=== PATIENT | female | born 1985 | race Hispanic/Latino ===

== ENCOUNTER 2017-07-22 04:26 | Emergency (ER) | payer SELFPAY ==
[2017-07-22 04:53] LABS: Bilirubin Negative (Negative); Blood, Urine Moderate (Negative); Glucose, Urine (Dipstick) Negative (Negative); Ketone, Urine Negative (Negative); Nitrite Negative (Negative); Protein, Urine (Dipstick) Negative (Neg-Trace); Urobilinogen 0.2 mg/dL (0.2-1.0)
[2017-07-22] MEDS ORDERED: Ondansetron ODT 4 MG TAB ONE (04:53)
[2017-07-22] MEDS ORDERED: Ketorolac Tromethamine 30 MG/ML VIAL ONE (04:55)
[2017-07-22 05:02] LABS: #Basophils 0.1 thou/uL (0.0-0.2); #Eosinphils 0.2 thou/uL (0.0-0.7); #Lymphocytes 2.4 thou/uL (1.20-3.40); #Monocytes 0.8 thou/uL (0.11-0.59); #Neutrophils 5.9 thou/uL (1.40-6.50); %Basophils 0.8 % (0.0-1.0); %Eosinophils 2.5 % (0.0-10.0); %Lymphocytes 25.7 % (21.0-51.0); Hematocrit 42.7 % (36.0-47.0); Mean Platelet Volume 8.2 fL (7.4-10.4); Red Blood Cell (RBC) Count 4.88 mill/uL (4.20-5.40); White Blood Cell (WBC) Count 9.4 thou/uL (4.8-10.8)
[2017-07-22 05:26] LABS: Bacteria/HPF 1+ HPF (None Seen); Hyaline Casts/LPF NONE SEEN LPF (0-3 Hyaline); WBC/HPF 0-3 HPF (0-3)
[2017-07-22 05:28] LABS: ALT (SGPT) 23 U/L (8-55); AST (SGOT) 17 U/L (5-34); Alkaline Phosphatase 73 U/L (40-150); Anion Gap 13 mmol/L (10-20); BUN (Urea Nitrogen) 18 mg/dL (7.0-18.7); Bilirubin, Total 0.7 mg/dL (0.2-1.2); Calc. Creatinine Clearance 0 mL/min (70-130); Calcium 9.3 mg/dL (7.8-10.44); Carbon Dioxide 22 mmol/L (22-29); Chloride 104 mmol/L (98-107); Estimated GFR-MDRD Greater than 90; Globulin 3.7 g/dL (2.4-3.5); Lipase 22 U/L (8-78)
--- NOTE | 2017-07-22 07:37 | RAD ---
TWO VIEWS OF THE CHEST: COMPARISON: None. HISTORY: Upper and mid back pain that began yesterday. Dyspnea. FINDINGS: Two views of the chest show normal sized cardiomediastinal silhouette. There is no evidence of conso lidation, mass, or pleural effusion. The bones are unremarkable. IMPRESSION: No evidence of acute cardiopulmonary disease. POS: [facility]
== END 2017-07-22 06:07 | disposition home or self-care (01) ==
LOC: ERS 04:26
DX: M54.6 Pain in thoracic spine (principal)
CPT/HCPCS: 36415; 71020; 80053; 81003; 81015; 81025; 83690; 85025; 85379; 96372; J1885; Q0162

== ENCOUNTER 2019-05-28 13:39 | Emergency (ER) | payer SELFPAY ==
[2019-05-28] MEDS ORDERED: Ketorolac Tromethamine 30 MG/ML VIAL ONE (14:39)
--- NOTE | 2019-05-28 14:54 | RAD ---
Exam:3 views left shoulder HISTORY: Pain. COMPARISON: None FINDINGS: Limited evaluation of the glenohumeral joint space due to position. No fracture. No disloca tion. Visualized left ribs are unremarkable. IMPRESSION: Limited evaluation of the glenohumeral joint space. No fracture or dislocation
--- NOTE | 2019-05-28 16:07 | RAD ---
LEFT SHOULDER TWO VIEWS: 05/28/19 HISTORY: Left shoulder pain, injury. True AP and axillary lateral views are performed. No fracture, dislocation, or other acute process. IMPRESSION: Unremarkable left shoulder. POS: [facility]
== END 2019-05-28 16:06 | disposition home or self-care (01) ==
LOC: ERS 13:39
DX: R07.89 Other chest pain (principal); M25.512 Pain in left shoulder
CPT/HCPCS: 93005; 96372; J1885

== ENCOUNTER 2019-09-06 19:55 | Emergency (ER) | payer SELFPAY ==
[2019-09-06 20:20] LABS: Bilirubin Negative (Negative); Blood, Urine Negative (Negative); Clarity Clear (Clear); Glucose, Urine (Dipstick) Normal (Negative); Leukocyte Negative Leu/uL (Negative); Nitrite Negative (Negative); Protein, Urine (Dipstick) Negative (Neg-Trace); Urobilinogen Normal mg/dL (Less than 2)
[2019-09-06 20:23] LABS: Pregnancy Test - Urine (BHCG) Negative (Negative); Pregu Control Background? CLEAR/WHITE (CLR/WHITE); Pregu Control Bar Appear? YES (CONTROL BAR); Specific Gravity 1.022 (1.002-1.036)
[2019-09-06] MEDS ORDERED: Ketorolac Tromethamine 30 MG/ML VIAL ONE (20:40)
[2019-09-06 20:54] LABS: #Basophils 0.1 thou/uL (0.0-0.2); #Eosinphils 0.3 thou/uL (0.0-0.7); #Lymphocytes 3.5 thou/uL (1.20-3.40); #Monocytes 0.8 thou/uL (0.11-0.59); #Neutrophils 4.9 thou/uL (1.40-6.50); %Basophils 1.1 % (0.0-1.0); %Eosinophils 2.7 % (0.0-10.0); %Lymphocytes 36.6 % (21.0-51.0); %Monocytes 8.3 % (0.0-10.0); %Neutrophils 51.3 % (42.0-75.0); Hemoglobin 12.3 g/dL (12.0-16.0); Mean Corpuscular HGB CONC 33.8 g/dL (32.0-36.0); Mean Corpuscular Hemoglobin 28.8 pg (27.0-31.0); Mean Corpuscular Volume 85.1 fL (78.0-98.0); Mean Platelet Volume 7.9 fL (7.4-10.4); Platelet Count 271 thou/uL (130-400); RBC Distribution Width 12.6 % (11.5-14.5); Red Blood Cell (RBC) Count 4.28 mill/uL (4.20-5.40); White Blood Cell (WBC) Count 9.5 thou/uL (4.8-10.8)
[2019-09-06 21:17] LABS: ALT (SGPT) 31 U/L (8-55); AST (SGOT) 22 U/L (5-34); Albumin 4.3 g/dL (3.5-5.0); Alkaline Phosphatase 77 U/L (40-110); Anion Gap 12 mmol/L (10-20); BUN (Urea Nitrogen) 14 mg/dL (7.0-18.7); Bilirubin, Total 0.2 mg/dL (0.2-1.2); Calc. Creatinine Clearance 0 mL/min (70-130); Calcium 9.1 mg/dL (7.8-10.44); Carbon Dioxide 24 mmol/L (22-29); Chloride 108 mmol/L (98-107); Estimated GFR-MDRD 81; Globulin 3.1 g/dL (2.4-3.5); Glucose 93 mg/dL (70-105); Potassium 3.7 mmol/L (3.5-5.1); Protein, Total 7.4 g/dL (6.0-8.3); Sodium 140 mmol/L (136-145)
--- NOTE | 2019-09-06 21:17 | CT ---
CT abdomen and pelvis noncontrast HISTORY: Right flank pain. FINDINGS: Each renal collecting system, ureter, and urinary bladder are decompressed without stone ev ident. Lack of contrast limits evaluation for other abnormalities. Liver is diffusely hypodense. Gallbladder surgically absent. Appendix not visualized. At the right adnexa, an oval cystic lesion is 3.7 cm greatest diameter. Small nearby metallic object may be related to a clip from the cholecystectomy. Ti ny focus of dystrophic calcification at the posterior margin of the lower uterus may be related to mild fibroid disease. IMPRESSION: No CT evidence of urinary tract obstruction or calcification. Right ovarian cyst 3.7 cm.
--- NOTE | 2019-09-06 22:55 | ULT ---
Pelvic sonogram transabdominal and transvaginal imaging with duplex evaluation HISTORY: Pelvic pain. FINDINGS: Urinary bladder is incompletely distended. Uterus has a heterogeneous echotexture and measu res up to 9.7 cm. Endometrium is 1.2 cm. Small dystrophic calcification along the anterior myometrium. No free fluid in the pelvis. Right ovary measures up to 4.7 cm with a dominant 2.4 cm follicle. No pathologic mass. Left ovary is 2.5 cm. Good color and spectral Doppler flow within each ovary. IMPRESSION: No pathologic right ovarian cyst is evident on sonogram. Dominant follicle is 2.4 cm. Thickened endometrium
== END 2019-09-06 23:08 | disposition home or self-care (01) ==
LOC: ERS 19:55
DX: N83.201 Unspecified ovarian cyst, right side (principal)
CPT/HCPCS: 36415; 74176; 76856; 80053; 81003; 81025; 85025; J1885

== ENCOUNTER 2020-04-28 11:42 | Emergency (ER) | payer SELFPAY ==
[2020-04-28 12:34] LABS: ALT (SGPT) 27 U/L (8-55); AST (SGOT) 19 U/L (5-34); Albumin 4.1 g/dL (3.5-5.0); Alkaline Phosphatase 76 U/L (40-110); Anion Gap 12 mmol/L (10-20); BHCG - Serum Negative (NEGATIVE); BUN (Urea Nitrogen) 15 mg/dL (7.0-18.7); Bilirubin, Total 0.3 mg/dL (0.2-1.2); Calc. Creatinine Clearance 0 mL/min (70-130); Calcium 8.8 mg/dL (7.8-10.44); Carbon Dioxide 21 mmol/L (22-29); Chloride 108 mmol/L (98-107); Estimated GFR-MDRD 90; Globulin 3.2 g/dL (2.4-3.5); Glucose 108 mg/dL (70-105); Lipase 32 U/L (8-78); Potassium 3.7 mmol/L (3.5-5.1); Pregs Control Background? CLEAR/WHITE (CLR/WHITE); Pregs Control Bar Appear? YES (CONTROL BAR); Protein, Total 7.3 g/dL (6.0-8.3); Sodium 137 mmol/L (136-145)
[2020-04-28] MEDS ORDERED: Metoclopramide HCl 10 MG/2 ML VIAL ONE (12:38)
[2020-04-28] MEDS ORDERED: Proparacaine 0.5% Opth 15 ML BOT ONE (12:38)
[2020-04-28] MEDS ORDERED: diphenhydrAMINE 50 MG/ML VIAL ONE (12:38)
--- NOTE | 2020-04-28 12:51 | CT ---
CT BRAIN: DATE: 04/28/2020. PROVIDED CLINICAL HISTORY: Headache. FINDINGS: The ventricular system appears normal in size and morphology. There is no evidence for intracranial hemorrhage or mass effect. There is a focal area of asymmetric CSF density at the lateral aspect of the right cerebellar hemisphere with a somewhat asymmetrically small appearance to the right cerebell ar hemisphere as compared to the left. This may be on the basis of developmental changes, encephalom alacia, or possibly an arachnoid cyst. The extracranial soft tissues and osseous structures demonstr ate an unremarkable CT appearance. IMPRESSION: No evidence for intracranial hemorrhage or mass effect. POS: [facility]
[2020-04-28 13:01] LABS: #Basophils 0.1 thou/uL (0.0-0.2); #Eosinphils 0.2 thou/uL (0.0-0.7); #Lymphocytes 2.6 thou/uL (1.20-3.40); #Monocytes 0.5 thou/uL (0.11-0.59); #Neutrophils 3.1 thou/uL (1.40-6.50); %Eosinophils 2.4 % (0.0-10.0); %Lymphocytes 40.9 % (21.0-51.0); %Monocytes 7.1 % (0.0-10.0); %Neutrophils 48.7 % (42.0-75.0); Hemoglobin 12.2 g/dL (12.0-16.0); Mean Corpuscular HGB CONC 32.8 g/dL (32.0-36.0); Mean Corpuscular Hemoglobin 27.9 pg (27.0-31.0); Mean Corpuscular Volume 85.3 fL (78.0-98.0); Mean Platelet Volume 9.1 fL (7.4-10.4); Platelet Count 268 thou/uL (130-400); RBC Distribution Width 13.4 % (11.5-14.5); Red Blood Cell (RBC) Count 4.36 mill/uL (4.20-5.40); White Blood Cell (WBC) Count 6.4 thou/uL (4.8-10.8)
--- NOTE | 2020-04-28 13:09 | RAD ---
PORTABLE CHEST: DATE: 04/28/2020. PROVIDED CLINICAL HISTORY: Chest pain. FINDINGS: Comparison 07/22/2017. Cardiac and mediastinal silhouette is within normal limits. No focal consolid ation, pleural fluid, or pneumothorax apparent. IMPRESSION: No evidence for an acute cardiopulmonary process. POS: [facility]
[2020-04-28] MEDS ORDERED: Ketorolac Tromethamine 30 MG/ML VIAL ONE (13:27)
[2020-04-28 13:34] LABS: Bacteria/HPF None Seen HPF (None Seen); Bilirubin Negative (Negative); Blood, Urine 2+ (Negative); Clarity Clear (Clear); Glucose, Urine (Dipstick) Normal (Negative); Ketone, Urine Negative (Negative); Leukocyte Negative Leu/uL (Negative); Nitrite Negative (Negative); Protein, Urine (Dipstick) Negative (Neg-Trace); RBC/HPF 0-3 HPF (0-3); Specific Gravity, Urine 1.017 (1.002-1.036); Squamous Epithelial 0-3 HPF (0-3); Urobilinogen Normal mg/dL (Less than 2); WBC/HPF 0-3 HPF (0-3)
[2020-04-28] MEDS ORDERED: Ondansetron PF 4 MG/2 ML Vial ONE (14:40)
[2020-04-28] MEDS ORDERED: Morphine 4 MG/ML VIAL ONE (14:40)
== END 2020-04-28 15:26 | disposition home or self-care (01) ==
LOC: ERS 11:42
DX: R07.9 Chest pain, unspecified (principal); R51 Headache; M54.5 Low back pain
CPT/HCPCS: 70450; 71045; 80053; 81003; 81015; 83690; 84484; 84703; 85025; 87077; 87086; 93005; J1200; J1885; J2270; J2405; J2765

== ENCOUNTER 2020-08-02 13:27 | Emergency (ER) | payer OTHER, SELFPAY ==
[2020-08-02 14:05] LABS: #Basophils 0.1 thou/uL (0.0-0.2); #Eosinphils 0.3 thou/uL (0.0-0.7); #Lymphocytes 2.6 thou/uL (1.20-3.40); #Monocytes 0.4 thou/uL (0.11-0.59); #Neutrophils 2.6 thou/uL (1.40-6.50); %Basophils 1.2 % (0.0-1.0); %Eosinophils 4.5 % (0.0-10.0); %Lymphocytes 43.5 % (21.0-51.0); %Neutrophils 43.7 % (42.0-75.0); Mean Corpuscular HGB CONC 33.2 g/dL (32.0-36.0); Mean Corpuscular Volume 84.3 fL (78.0-98.0); Mean Platelet Volume 8.7 fL (7.4-10.4); Platelet Count 310 thou/uL (130-400); RBC Distribution Width 13.9 % (11.5-14.5); Red Blood Cell (RBC) Count 4.66 mill/uL (4.20-5.40)
[2020-08-02] MEDS ORDERED: Ketorolac Tromethamine 30 MG/ML VIAL ONE (14:07)
[2020-08-02] MEDS ORDERED: Dexamethasone 10 MG/ML VIAL ONE (14:07)
--- NOTE | 2020-08-02 14:23 | RAD ---
PORTABLE CHEST ONE VIEW: 08/02/20 at 2:05 p.m. HISTORY: COVID exposure with cough and dyspnea. FINDINGS: Comparison made with exam of 04/28/20. The heart size is normal. No lobar consolidation, pneumothoraces, or pleural effusions are seen. IMPRESSION: No radiographic evidence of acute cardiopulmonary process. POS: [facility]
[2020-08-02 14:28] LABS: ALT (SGPT) 23 U/L (8-55); AST (SGOT) 21 U/L (5-34); Albumin 4.3 g/dL (3.5-5.0); Alkaline Phosphatase 71 U/L (40-110); Anion Gap 11 mmol/L (10-20); BUN (Urea Nitrogen) 13 mg/dL (7.0-18.7); Bilirubin, Total 0.2 mg/dL (0.2-1.2); CK (CPK) 67 U/L (29-168); Calc. Creatinine Clearance 0 mL/min (70-130); Calcium 9.2 mg/dL (7.8-10.44); Carbon Dioxide 27 mmol/L (22-29); Chloride 106 mmol/L (98-107); Estimated GFR-MDRD Greater than 90; Globulin 3.6 g/dL (2.4-3.5); Glucose 96 mg/dL (70-105); Potassium 3.5 mmol/L (3.5-5.1); Protein, Total 7.9 g/dL (6.0-8.3); Sodium 140 mmol/L (136-145)
[2020-08-03 12:01] LABS: SARS-CoV-2 MS2 Positive; SARS-CoV-2 N Gene Positive; SARS-CoV-2 S Gene Negative; SARS-CoV-2 by NAA DETECTED (NotDetected); SARS-CoV-2 orf1ab Positive
== END 2020-08-02 15:30 | disposition home or self-care (01) ==
LOC: ERS 13:27
DX: U07.1 COVID-19 (principal)
CPT/HCPCS: 71045; 80053; 82550; 84484; 85025; 87635; 93005; 96374; 96375; J1100; J1885; U0003

== ENCOUNTER 2022-11-07 22:16 | Emergency (ER) | payer SELFPAY ==
[~2022-11-07 22:16] MED LIST: Iopamidol-370 76% 500 ML 1 ML ONE
[2022-11-07 22:43] LABS: Bacteria/HPF None Seen HPF (None Seen); Bilirubin Negative (Negative); Blood, Urine Trace (Negative); Clarity Clear (Clear); Glucose, Urine (Dipstick) Normal (Negative); Ketone, Urine Negative (Negative); Leukocyte Negative Leu/uL (Negative); Nitrite Negative (Negative); Protein, Urine (Dipstick) Negative (Neg-Trace); RBC/HPF 0-3 HPF (0-3); Specific Gravity, Urine 1.021 (1.002-1.036); Squamous Epithelial 0-3 HPF (0-3); Urobilinogen Normal mg/dL (Less than 2); pH, Urine 5.5 (5.0-9.0)
[2022-11-07 22:46] LABS: Pregnancy Test - Urine (BHCG) Negative (Negative); Pregu Control Background? CLEAR/WHITE (CLR/WHITE); Pregu Control Bar Appear? YES (CONTROL BAR); Specific Gravity 1.021 (1.002-1.036)
[2022-11-07 22:55] LABS: #Basophils 0.1 thou/uL (0.0-0.2); #Eosinphils 0.4 thou/uL (0.0-0.7); #Lymphocytes 3.9 thou/uL (1.20-3.40); #Monocytes 0.9 thou/uL (0.11-0.59); %Basophils 0.7 % (0.0-1.0); %Eosinophils 3.5 % (0.0-10.0); %Lymphocytes 38.6 % (21.0-51.0); %Monocytes 8.5 % (0.0-10.0); %Neutrophils 48.7 % (42.0-75.0); Hemoglobin 12.8 g/dL (12.0-16.0); Mean Corpuscular HGB CONC 33.8 g/dL (32.0-36.0); Mean Corpuscular Hemoglobin 27.4 pg (27.0-31.0); Mean Corpuscular Volume 81.1 fl (78.0-98.0); Mean Platelet Volume 8.9 fL (7.4-10.4); Platelet Count 292 10x3/uL (130-400); RBC Distribution Width 12.9 % (11.5-14.5); Red Blood Cell (RBC) Count 4.65 mill/uL (4.20-5.40); White Blood Cell (WBC) Count 10.2 10x3/uL (4.8-10.8)
[2022-11-07 23:17] LABS: ALT (SGPT) 19 U/L (8-55); AST (SGOT) 18 U/L (5-34); Albumin 4.4 g/dL (3.5-5.0); Alkaline Phosphatase 78 U/L (40-110); Anion Gap 12 mmol/L (10-20); BUN (Urea Nitrogen) 11 mg/dL (7.0-18.7); Bilirubin, Total 0.3 mg/dL (0.2-1.2); Calc. Creatinine Clearance 0 mL/min (70-130); Calcium 9.2 mg/dL (7.8-10.44); Carbon Dioxide 23 mmol/L (22-29); Chloride 106 mmol/L (98-107); Estimated GFR 107; Globulin 3.7 g/dL (2.4-3.5); Glucose 93 mg/dL (70-105); Potassium 3.7 mmol/L (3.5-5.1); Protein, Total 8.1 g/dL (6.0-8.3); Sodium 137 mmol/L (136-145)
[2022-11-07] MEDS ORDERED: Ondansetron PF 4 MG/2 ML Vial ONE (23:36)
[2022-11-07] MEDS ORDERED: Morphine 4 MG/ML VIAL ONE (23:36)
== END 2022-11-08 02:00 | disposition home or self-care (01) ==
LOC: ERS 22:16
DX: R10.12 Left upper quadrant pain (principal)
CPT/HCPCS: 36415; 74177; 80053; 81003; 81015; 81025; 83690; 85025; 96374; 96375; J2270; J2405; Q9967